=== PATIENT | male | born 1985 | race Caucasian/White ===

== ENCOUNTER 2016-09-01 10:26 | Emergency (ER) | payer SELFPAY | END 2016-09-01 12:20 | disposition home or self-care (01) | LOC: ER1 10:26 | DX: S20.211A Contusion of right front wall of thorax, initial encounter (principal); F17.200 Nicotine dependence, unspecified, uncomplicated; Y93.72 Activity, wrestling | CPT/HCPCS: 71101; 96372; 99283; J1885 ==

== ENCOUNTER 2020-03-26 12:09 | Emergency (ER) | payer OTHER ==
[~2020-03-26 12:09] MED LIST: CLARITIN10 MG PO; CORTISPORIN OTI10 M1 EARRT; IBUPROFEN600 MG PO; IBUPROFEN800 MG PO; KEFLEX500 MG PO; PREDNISONE 50 M50 MG PO; TAMIFLU75 MG PO; ZOFRAN4 MG PO
[2020-03-26] MEDS ORDERED: AMOXICILLIN500 M1 PO (12:46)
[2020-03-26] MEDS ORDERED: NAPROSYN500 MG PO (12:46)
== END 2020-03-26 13:42 | disposition home or self-care (01) ==
LOC: ER1 12:09
DX: K05.00 Acute gingivitis, plaque induced (principal); K02.9 Dental caries, unspecified; F17.200 Nicotine dependence, unspecified, uncomplicated
CPT/HCPCS: 99282

== ENCOUNTER → 2021-12-11 | Outpatient (CLI) | payer OTHER ==
[~2021-12-11] MED LIST changes: +AMOXICILLIN500 M1 PO; +NAPROSYN500 MG PO
== END ==
LOC: KOH-I 13:12
DX: M79.641 Pain in right hand (principal)
CPT/HCPCS: 73130